=== PATIENT | female | born 2000 | race Caucasian/White ===

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

== ENCOUNTER 2018-12-31 14:49 | Emergency (ER) | payer OTHER ==
--- NOTE | 2018-12-31 15:23 | EDPHY ---
H & P Stated Complaint: n/v/d abd cramping some dizzyness Time Seen by Provider: 12/31/18 15:20 HPI/ROS: CHIEF COMPLAINT: Nausea and diarrhea HISTORY OF PRESENT ILLNESS: Patient is a 18-year-old female who presents to the emergency department complaining of nausea but no vomiting. Also diarrhea and occasional lightheadedness. She states that her symptoms have been present for about 1 month. They tend to fluctuate but occur almost daily. She has not noticed in association with foods. She does not have any sick contacts. No recent travel. No drinking of unfiltered water. No vaginal symptoms. No urinary symptoms. She denies . No history or family history of Crohn' s, ulcerative colitis or other significant GI disease. She denies abdominal pain. Severity: Moderate Modifying factors: Resolution of the diarrhea with Pepto-Bismol. REVIEW OF SYSTEMS: Constitutional: denies: chills, fever, recent illness, recent injury EENTM: denies: blurred vision, double vision, nose congestion Respiratory: denies: cough, shortness of breath Cardiac: denies: chest pain, irregular heart rate, lightheadedness, palpitations Gastrointestinal/Abdominal: See HPI Genitourinary: denies: dysuria, frequency, hematuria, pain Musculoskeletal: denies: joint pain, muscle pain Skin: denies: lesions, rash, jaundice, bruising Neurological: denies: headache, numbness, paresthesia, tingling, dizziness, weakness Hematologic/Lymphatic: denies: blood clots, easy bleeding, easy bruising Immunologic/allergic: denies: HIV/AIDS, transplant 10 systems reviewed and negative except as noted EXAM: GENERAL: Well-appearing, well-nourished and in no acute distress. HEAD: Atraumatic, normocephalic. EYES: Pupils equal round and reactive to light, extraocular movements intact, sclera anicteric, conjunctiva are normal. ENT: TMs normal, nares patent, oropharynx clear without exudates. Moist mucous membranes. NECK: Normal range of motion, supple without lymphadenopathy or JVD. LUNGS: Breath sounds clear to auscultation bilaterally and equal. No wheezes rales or rhonchi. HEART: Regular rate and rhythm without murmurs, rubs or gallops. ABDOMEN: Soft, nontender, normoactive bowel sounds. No guarding, no rebound. No masses appreciated. BACK: No CVA tenderness, no spinal tenderness, step-offs or deformities EXTREMITIES: Normal range of motion, no pitting or edema. No clubbing or cyanosis. NEUROLOGICAL: Cranial nerves II through XII grossly intact. Normal speech, normal gait. 5/5 strength, normal movement in all extremities, normal sensation , normal reflexes PSYCH: Normal mood, normal affect. SKIN: Warm, dry, normal turgor, no visible rashes or lesions. Source: Patient Exam Limitations: No limitations - Personal History LMP (Females 10-55): 8-14 Days Ago Current Tetanus Diphtheria and Acellular Pertussis (TDAP): Yes - Medical/Surgical History Hx Asthma: No Hx Chronic Respiratory Disease: No Hx Diabetes: No Hx Cardiac Disease: No Hx Renal Disease: No Hx Cirrhosis: No Hx Alcoholism: No Hx HIV/AIDS: No Hx Splenectomy or Spleen Trauma: No Other PMH: denies - Family History Significant Family History: No pertinent family hx - Social History Smoking Status: Never smoked Alcohol Use: None Constitutional: Initial Vital Signs Temperature (C) 37 C 12/31/18 14:54 Heart Rate 72 12/31/18 14:54 Respiratory Rate 18 12/31/18 14:54 Blood Pressure 126/88 H 12/31/18 14:54 O2 Sat (%) 98 12/31/18 14:54 O2 Delivery Mode Room Air Allergies/Adverse Reactions: acetaminophen [From Vicodin] Allergy (Verified 12/22/17 19:30) hydrocodone [From Vicodin] Allergy (Verified 12/22/17 19:30) oxycodone Allergy (Verified 12/31/18 14:51) Home Medications: Medication Instructions Recorded Levonorgestrel-Ethin Estradiol 1 each PO 12/22/17 [Levora-28 Tablet] Ondansetron Odt [Zofran Odt 4 mg 4 mg PO Q4 PRN #20 tab 12/31/18 (RX)] Medical Decision Making - Diagnostics Imaging Results: Imaging Impressions Abdomen Ultrasound 12/31/18 16:23 Impression: 1. Contracted gallbladder without definite cholelithiasis or biliary ductal dilation. 2. Left lobe hepatic 1.8 cm hyperechoic lesion probably a hemangioma given the patient's age. Findings and recommendations discussed with Emergency Department physician, DINA SANDRA at 17:04 hour, 12/31/2018. Final report concurs with initial preliminary interpretation. Imaging: Discussed imaging studies w/ appointment setter Radiologist ED Course/Re-evaluation: Patient's abdominal exam is benign. Will obtain lab work and hydrate and treat with Zofran. 5:00 p.m. the patient is feeling much better. Her ultrasound lab workup reassuring. She is eager to go home. I will prescribe her Zofran and have her follow up with GI. Discussed indications for return to the emergency department. She understands and feels comfortable with this plan. Differential Diagnosis: Partial list of the Differential diagnosis considered include but were not limited to; gastroenteritis, irritable bowel disease, Crohn's disease, food allergy and although unlikely based on the history and physical exam, I also considered appendicitis, biliary disease, pancreatitis, peptic ulcer disease torsion, intussusception. - Data Points Laboratory Results: Laboratory Results 12/31/18 15:31 12/31/18 15:31 12/31/18 12/31/18 12/31/18 16:00 15:31 15:31 WBC RBC Hgb Hct MCV MCH MCHC RDW Plt Count MPV Neut % (Auto) Lymph % (Auto) [place] % (Auto) Eos % (Auto) Baso % (Auto) Nucleat RBC Rel Count Absolute Neuts (auto) Absolute Lymphs (auto) Absolute Monos (auto) Absolute Eos (auto) Absolute Basos (auto) Absolute Nucleated RBC Immature Gran % Immature Gran # Sodium 139 mEq/L mEq/L (135-145) Potassium 4.0 mEq/L mEq/L (3.5-5.2) Chloride 107 mEq/L mEq/L (97-110) Carbon Dioxide 22 mEq/l mEq/l (22-31) Anion Gap 10 mEq/L mEq/L (6-14) BUN 9 mg/dL mg/dL (7-23) Creatinine 0.7 mg/dL mg/dL (0.6-1.0) Estimated GFR > 60 Glucose 93 mg/dL mg/dL (70-100) Calcium 9.7 mg/dL mg/dL (8.5-10.4) Total Bilirubin 1.6 mg/dL H mg/dL (0.1-1.4) Conjugated Bilirubin 0.3 mg/dL mg/dL (0.0-0.5) Unconjugated Bilirubin 1.3 mg/dL H mg/dL (0.0-1.1) AST 23 IU/L IU/L (14-46) ALT 17 IU/L IU/L (9-52) Alkaline Phosphatase 76 IU/L IU/L (38-126) Total Protein 7.9 g/dL g/dL (6.3-8.2) Albumin 4.8 g/dL g/dL (3.5-5.0) Lipase 70 IU/L IU/L (23-300) Beta HCG, Qual NEGATIVE Urine Color YELLOW Urine Appearance TURBID Urine pH 9.0 H (5.0-7.5) Ur Specific [place] 1.019 (1.002-1.030) Urine Protein 1+ H (NEGATIVE) Urine Ketones NEGATIVE (NEGATIVE) Urine Blood NEGATIVE (NEGATIVE) Urine Nitrate NEGATIVE (NEGATIVE) Urine Bilirubin NEGATIVE (NEGATIVE) Urine Urobilinogen NEGATIVE EU EU (0.2-1.0) Ur Leukocyte Esterase NEGATIVE (NEGATIVE) Urine RBC 1-3 /hpf /hpf (0-3) Urine WBC 1-3 /hpf /hpf (0-3) Ur Epithelial Cells TRACE /lpf /lpf (NONE-1+) Urine Mucus 3+ /lpf H /lpf (NONE-1+) Urine Glucose NEGATIVE (NEGATIVE) 12/31/18 15:31 WBC 6.43 10^3/uL 10^3/uL (3.80-9.50) RBC 4.78 10^6/uL 10^6/uL (4.18-5.33) Hgb 14.7 g/dL g/dL (12.6-16.3) Hct 43.1 % % (38.0-47.0) MCV 90.2 fL fL (81.5-99.8) MCH 30.8 pg pg (27.9-34.1) MCHC 34.1 g/dL g/dL (32.4-36.7) RDW 12.2 % % (11.5-15.2) Plt Count 212 10^3/uL 10^3/uL (150-400) MPV 12.6 fL H fL (8.7-11.7) Neut % (Auto) 55.0 % % (39.3-74.2) Lymph % (Auto) 37.6 % % (15.0-45.0) [place] % (Auto) 6.5 % % (4.5-13.0) Eos % (Auto) 0.0 % L % (0.6-7.6) Baso % (Auto) 0.9 % % (0.3-1.7) Nucleat RBC Rel Count 0.0 % % (0.0-0.2) Absolute Neuts (auto) 3.53 10^3/uL 10^3/uL (1.70-6.50) Absolute Lymphs (auto) 2.42 10^3/uL 10^3/uL (1.00-3.00) Absolute Monos (auto) 0.42 10^3/uL 10^3/uL (0.30-0.80) Absolute Eos (auto) 0.00 10^3/uL L 10^3/uL (0.03-0.40) Absolute Basos (auto) 0.06 10^3/uL 10^3/uL (0.02-0.10) Absolute Nucleated RBC 0.00 10^3/uL 10^3/uL (0-0.01) Immature Gran % 0.0 % % (0.0-1.1) Immature Gran # 0.00 10^3/uL 10^3/uL (0.00-0.10) Sodium Potassium Chloride Carbon Dioxide Anion Gap BUN Creatinine Estimated GFR Glucose Calcium Total Bilirubin Conjugated Bilirubin Unconjugated Bilirubin AST ALT Alkaline Phosphatase Total Protein Albumin Lipase Beta HCG, Qual Urine Color Urine Appearance Urine pH Ur Specific [place] Urine Protein Urine Ketones Urine Blood Urine Nitrate Urine Bilirubin Urine Urobilinogen Ur Leukocyte Esterase Urine RBC Urine WBC Ur Epithelial Cells Urine Mucus Urine Glucose Medications Given: Discontinued Medications Sodium Chloride (Ns) 1,000 mls @ 0 mls/hr IV EDNOW ONE; Wide Open PRN Reason: Protocol Stop: 12/31/18 15:25 Last Admin: 12/31/18 15:34 Dose: 1,000 mls Ondansetron HCl (Zofran) 4 mg IVP EDNOW ONE Stop: 12/31/18 15:25 Last Admin: 12/31/18 15:35 Dose: 4 mg Departure - Departure Disposition: Home, Routine, Self-Care Clinical Impression: Nausea Diarrhea Qualifiers: Diarrhea type: infectious Qualified Code(s): A09 - Infectious gastroenteritis and colitis, unspecified Condition: Fair Instructions: Ondansetron (By mouth), Acute Diarrhea (ED) Additional Instructions: I spoke with [facility]. They will have the regulatory compliance specialist office for Dr. Dsouza call you to make an appointment. Referrals: NONE *PRIMARY CARE P,. [Primary Care Provider] - As per Instructions [facility] ,. [Edm Groups for Call Sched] - As per Instructions Prescriptions: Ondansetron Odt [Zofran Odt 4 mg (RX)] 4 mg PO Q4 PRN #20 tab PRN Reason: Nausea & Vomiting
[2018-12-31] MEDS ORDERED: ONDANSETRON 4 MG/2 ML VIAL IVP ONE (15:24)
[2018-12-31] MEDS ORDERED: NS 1,000 ML IV ONE (15:24)
[2018-12-31 15:52] LABS: PLATELET COUNT 212 10^3/uL (150-400)
[2018-12-31 17:17] VITALS: BP 123/74
== END 2018-12-31 17:24 | disposition home or self-care (01) ==
DX: A09 Infectious gastroenteritis and colitis, unspecified (principal); E86.9 Volume depletion, unspecified; K82.0 Obstruction of gallbladder; K76.9 Liver disease, unspecified
CPT/HCPCS: 96374; J2405